=== PATIENT | male | born 1990 | race Two or more races ===

== ENCOUNTER 2024-11-03 21:11 | Emergency (ER) | payer OTHER, SELFPAY ==
[2024-11-03 21:11] VITALS: BMI 29.0
[2024-11-03 21:22] VITALS: BP 158/83; PULSE 105; RESP 19; TEMP 37.2; O2SAT 97
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
== END 2024-11-03 23:12 | disposition home or self-care (01) ==
PROVIDERS: Emergency Provider Emergency Medicine; PCP Student in an Organized Health Care Education/Training Program
DX: S09.90XA Unspecified injury of head, initial encounter (principal); S09.93XA Unspecified injury of face, initial encounter; S19.9XXA Unspecified injury of neck, initial encounter; V29.99XA Rider (driver) (passenger) of other motorcycle injured in unspecified traffic accident, initial encounter
CPT/HCPCS: 70450; 70486; 72125; 99284